=== PATIENT | male | born 1945 | race Caucasian/White ===

== ENCOUNTER 2016-09-05 06:38 | Day surgery (SDC) | payer MEDICARE, BC ==
[2016-09-01 14:21] LABS: HEMOGLOBIN 14.6 g/dL (13.6-17.8)
[2016-09-01 14:24] LABS: HEMATOCRIT 42.3 % (40.0-51.0)
[2016-09-01 14:39] LABS: A/G RATIO 1.2 (0.7-1.9); ALBUMIN 3.8 G/DL (3.5-5.0); ALKALINE PHOSPHATASE 66 U/L (45-117); BUN (BLOOD UREA NITROGEN) 15 MG/DL (6-23); CALCIUM, SERUM 9.3 MG/DL (8.5-10.4); CHLORIDE, SERUM 104 MMOL/L (96-112); CO2 (CARBON DIOXIDE) 29 MMOL/L (24-34); CREATININE 1.15 MG/DL (0.70-1.30); GFR AFRICAN AMERICAN 75 ML/MIN (>=60); GFR NON AFRICAN AMERICAN 65 ML/MIN (>=60); GLOBULIN 3.1 G/DL (2.5-4.1); POTASSIUM, SERUM 4.8 MMOL/L (3.5-5.3); SGOT(AST) 27 U/L (5-40); SGPT(ALT) 24 U/L (5-65); SODIUM, SERUM 141 MMOL/L (135-148); TOTAL BILIRUBIN 0.5 MG/DL (0-1.2); TOTAL PROTEIN 6.9 G/DL (6.0-8.5)
[2016-09-01 14:40] LABS: GLUCOSE, SERUM 89 MG/DL (60-99)
--- NOTE | ~2016-09-05 | OP ---
Record Of Operation [facility] [address] [place]. [address] NAME: CHETAN EM ULICES : 49 STATUS : REG [facility] [place] PAT#: [id number] AGE: 70 ADM/REG DATE : 09/05/16 MR#: [id number] REPORT SERV DATE: 09/05/16 DICTATED BY: JIMMY COHEN DATE: 09/05/16 REPORT STATUS : Draft TRANSCRIBED BY: MODL DATE: 09/05/16 DATE OF PROCEDURE: 09/05/2016 PREOPERATIVE DIAGNOSIS: Right inguinal hernia. POSTOPERATIVE DIAGNOSIS: Bilateral inguinal hernias. PROCEDURE: Laparoscopic reduction and mesh patch repair of bilateral inguinal hernia. PROCEDURE IN DETAIL: The patient brought to the operating suite, placed in supine position, underwent satisfactory general endotracheal anesthesia without incident. The skin of the abdomen was scrubbed, prepped, and draped in usual sterile fashion. 0.5% Marcaine with epinephrine was utilized as supplemental local anesthesia at all intended trocar sites. Initially, an infraumbilical incision was performed dissecting through the skin and subcutaneous tissue to the umbilical fascia. Inferolateral retraction to the left exposed the medial aspect of the left rectus sheath. This was incised longitudinally and the medial aspect of the left rectus musculature was identified and retracted. This exposed the left posterior rectus sheath and a preperitoneal dissection balloon was inserted posterior to the left rectus sheath to the level of pubic tubercle. It was then insufflated under direct camera visualization creating a preperitoneal dissection plane bilaterally. The dissection balloon was then replaced with a structural balloon and CO2 was insufflated into the preperitoneal space for pressures of 15 mmHg throughout the case. Two additional 5 mm trocars were placed in the infraumbilical midline under direct visualization. This allowed me to continue to create a preperitoneal dissection plane on the right. There was a large indirect sac, which was dissected from the internal ring and the cord structures. Skeletonizing the cord structures, preperitoneal fat was also dissected free. On the left, there was a small indirect defect. Two separately placed pieces of Bard 3DMax polypropylene mesh were utilized. They were sized large, oriented left and right. They were both placed in local anesthesia, rolled up, and unrolled over the inguinal canals bilaterally and plicated in position with a helical tacker predominantly on the pubic tubercle in the rectus sheath. Then, the preperitoneal space was allowed to collapse. The trocars removed, CO2 was milked from the preperitoneal space. Left anterior rectus sheath was closed with [id number] suture of 0 Vicryl, subcutaneous tissue closed with interrupted 4-0 Vicryl, running subcuticular stitch of 4-0 Vicryl for the skin. Dermabond skin adhesive placed. The patient tolerated the procedure well and was returned to PACU in stable condition. At the termination of the procedure, sponge, needle, lap, and instrument counts were correct x3. ESTIMATED BLOOD LOSS: Less than 10 mL. Record Of Operation [address] [place]. [address] NAME: CHETAN EM ULICES : 49 STATUS : REG [facility]#: [id number] AGE: 70 ADM/REG DATE : 09/05/16 MR#: [id number] REPORT SERV DATE: 09/05/16 DICTATED BY: JIMMY COHEN DATE: 09/05/16 REPORT STATUS : Draft TRANSCRIBED BY: CATINA DATE: 09/05/16 WR/CATINA Jimmy Cohen M.D. / [id number] CC: Mckayla Dnubar M.D.
[~2016-09-05 06:38] MED LIST: AMB5 PO; ASAB PO; FISH-EPA1000 MG PO; OTC PROSTATE MED PO; PROSTATE; ULTRAM50 PO; VITAMIN D1000 UNI1 PO; [UNRECOGNIZED DRUG - OTHER]
== END 2016-09-05 14:28 | disposition home or self-care (01) ==
LOC: SDC 06:38
PROVIDERS: Specialist
PROC: 0YUA4JZ Supplement Bilateral Inguinal Region with Synthetic Substitute, Percutaneous Endoscopic Approach (ICD-10-PCS; principal; 2016-09-05 07:45)
DX: K40.20 Bilateral inguinal hernia, without obstruction or gangrene, not specified as recurrent (principal); K21.9 Gastro-esophageal reflux disease without esophagitis; Z98.890 Other specified postprocedural states; Z90.89 Acquired absence of other organs; K57.92 Diverticulitis of intestine, part unspecified, without perforation or abscess without bleeding; Z79.899 Other long term (current) drug therapy; Z79.82 Long term (current) use of aspirin; Z79.891 Long term (current) use of opiate analgesic
CPT/HCPCS: 80053; 85014; 85018; 93005; A9270-GY; C1726; C1727; C1781; J0690; J1885; J2250; J2405; J2710; J3010